=== PATIENT | male | born 1975 | race Caucasian/White ===

== ENCOUNTER 2018-03-14 16:52 | Emergency (ER) | payer MEDICARE, OTHER ==
[~2018-03-14] VITALS: Ht 170.2 cm; Wt 72.7 kg
[2018-03-14 17:14] VITALS: BP 106/72
== END 2018-03-14 17:17 | disposition home or self-care (01) ==
LOC: ER 16:52
DX: Z02.89 Encounter for other administrative examinations (principal); F12.90 Cannabis use, unspecified, uncomplicated; F10.10 Alcohol abuse, uncomplicated
CPT/HCPCS: 99284